=== PATIENT | male | born 1975 | race African-American/Black ===

== ENCOUNTER 2017-08-05 22:33 | Emergency (ER) | payer OTHER, BC ==
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
[2017-08-05 23:31] LABS: CHLORIDE,CL 104 mmol/L (98-107); SODIUM,NA 138 mmol/L (136-148)
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
== END 2017-08-06 00:15 | disposition home or self-care (01) ==
LOC: MW.ED 22:33
DX: T07.XXXA Unspecified multiple injuries, initial encounter (principal); I10 Essential (primary) hypertension; V47.5XXA Car driver injured in collision with fixed or stationary object in traffic accident, initial encounter
CPT/HCPCS: 36415; 70450; 70450-26; 71250; 71250-26; 72125; 72125-26; 74150; 74150-26; 80053; 80305; 82553; 84484; 93005; 99283; 99285-25